=== PATIENT | male | born 1945 | race Caucasian/White ===

== ENCOUNTER 2016-06-11 05:46 | Emergency (ER) | payer OTHER, MEDICARE ==
--- NOTE | 2016-06-11 06:07 | CPEKG ---
Heart Rate: 46 RR Interval: 1304 P-R Interval: 312 QRSD Interval: 88 QT Interval: 484 QTC Interval: 424 P Summit: 55 QRS Summit: 66 T Wave Summit: 52 EKG Severity - ABNORMAL ECG - EKG Impression: SINUS BRADYCARDIA EKG Impression: FIRST DEGREE AV BLOCK Electronically Signed By: Nisa Desir 11-Jun-2016 09:14:59
[2016-06-11] MEDS ORDERED: ACETAMINOPHEN 500 MG TAB PO ONE (06:58)
[2016-06-11] MEDS ORDERED: DIAZEPAM 10 MG/2 ML SYR IVP ONE (06:59)
--- NOTE | 2016-06-11 07:38 | EDPHY ---
H & P Stated Complaint: l scapular pain Time Seen by Provider: 06/11/16 05:48 HPI/ROS: HPI The patient presents with a left-sided upper back pain which has been present for the last several hours which became severe, to the point that he called 911. EMS gave him fentanyl and Versed in route with significant improvement in his symptoms. The pain is just medial to his left scapular border and is a dull ache associated with muscle cramping it radiates outward throughout his back. It caused him to be doubled over in pain it was so severe. He had pain like this about 1 week ago after driving from the [facility] here. He attributed this to his positioning holding the steering wheel. He does not have any associated numbness or tingling. The pain does not radiate down his arm. He does not have any chest pain, shortness of breath, nausea, vomiting, diaphoresis or dizziness. Before week ago, he had no history of similar pain. He is very active, a swimmer, and has felt some clicking and pops in his shoulder occasionally. REVIEW OF SYSTEMS Constitutional: No fever, no chills. Eyes: No discharge. ENT: No sore throat. Cardiovascular: No chest pain, no palpitations. Respiratory: No cough, no shortness of breath. Gastrointestinal: No abdominal pain, no vomiting. Genitourinary: No hematuria. Musculoskeletal: No back pain. Skin: No rashes. Neurological: No headache. PMHx: Healthy, history of retinal detachment Soc Hx: Visiting [place] from the [facility] for the next 5 weeks PHYSICAL General Appearance: Alert, no distress Eyes: Pupils equal and round no pallor or injection ENT, Mouth: Mucous membranes moist Respiratory: There are no retractions, lungs are clear to auscultation Cardiovascular: Regular rate and rhythm Gastrointestinal: Abdomen is soft and non-tender, no masses, bowel sounds normal Neurological: A&O, moves all extremities Skin: Warm and dry, no rashes Musculoskeletal: Cervical and thoracic spine are nontender to palpation at the midline, the patient has tenderness at the medial mid border of the left clavicle which is moderate in severity Extremities: symmetrical, full range of motion Psychiatric: Patient is oriented X 3, there is no agitation Source: Patient Exam Limitations: No limitations - Personal History Current Tetanus/Diphtheria Vaccine: Yes Current Tetanus Diphtheria and Acellular Pertussis (TDAP): Yes - Medical/Surgical History Hx Asthma: No Hx Chronic Respiratory Disease: No Hx Diabetes: No Hx Cardiac Disease: No Hx Renal Disease: No Hx Cirrhosis: No Hx Alcoholism: No Hx HIV/AIDS: No Hx Splenectomy or Spleen Trauma: No 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 - Social History Smoking Status: Never smoked Constitutional: Initial Vital Signs Temperature (C) 36.3 C 06/11/16 05:54 Heart Rate 51 L 06/11/16 05:54 Respiratory Rate 18 06/11/16 05:54 Blood Pressure 132/87 H 06/11/16 05:54 O2 Sat (%) 95 06/11/16 05:54 O2 Delivery Mode Nasal Cannula Allergies/Adverse Reactions: erythromycin base [Erythromycin Base] Allergy (Mild, Verified 07/22/12 18:12) Home Medications: Medication Instructions Recorded Denies 01/18/10 Hydrocodone Bit/Acetaminophen 1 - 2 tab PO Q4-6PRN #15 tab 07/22/12 [Vicodin 5/500] Miscellaneous Medical Supply [NO 1 ea MISC AD 07/22/12 HOME MEDS] Diazepam 5 mg PO TID PRN #15 tab 06/11/16 Medical Decision Making - Diagnostics EKG Interpretation: EKG: Complete interpretation has been separately recorded in the [facility] archive. Summary impression: Sinus bradycardia Imaging: Left shoulder x-ray two view shows no fracture, no dislocation, interpreted by me, radiology interpretation is pending. Procedures: Trigger-point injection: 10 mL of lidocaine 1% were injected at the patient's point of maximal tenderness using a 27 gauge needle under semi sterile conditions, patient tolerated the procedure well with no immediate complications. Differential Diagnosis: This is a 70-year-old man who presents with acute onset of left-sided scapular pain. This has no associated features. On exam, he is well-appearing and comfortable, though did receive fentanyl and Versed in the field by EMS. He does have tenderness just medial to his left scapula. He has no midline tenderness. He has no chest pain, shortness of breath, nausea or vomiting or diaphoresis or dizziness. Differential diagnosis includes muscle spasm, cervical radiculopathy with referred pain, shoulder dislocation, shoulder arthritis, much less likely ACS given patient's history. In the emergency room, EKG was obtained which was unremarkable. Right shoulder x-rays were also normal for any acute injury. The patient wanted to proceed with a trigger point injection which was performed by me which provided him some relief from his pain. He was given a dose of Tylenol, he cannot take NSAIDs because of his retinal detachment, he was also given a benzodiazepine for muscle relaxation. He will be discharged with Tylenol and Valium. He is visiting from out of town, thus I have given him information for local doctor to follow up with if this pain continues. - Data Points Medications Given: Discontinued Medications Acetaminophen (Tylenol) 1,000 mg PO EDNOW ONE Stop: 06/11/16 06:59 Last Admin: 06/11/16 07:30 Dose: 1,000 mg Diazepam (Valium Injection) 2.5 mg IVP EDNOW ONE Stop: 06/11/16 07:00 Last Admin: 06/11/16 07:31 Dose: 2.5 mg Departure - Departure Disposition: Home, Routine, Self-Care Clinical Impression: Left-sided thoracic back pain Qualifiers: Chronicity: acute Qualified Code(s): M54.6 - Pain in thoracic spine Condition: Good Instructions: Diazepam (By mouth), Back Pain (ED) Additional Instructions: You should return to the emergency room if your worse in any way. Please use ice packs or heat on her back to help with pain. You can take Tylenol 1000 mg every 6 hours as needed for pain. I have given you information for follow-up if you continue to have pain. Referrals: Jhon Grady MD [Medical Doctor] - As per Instructions Don Barrera MD [Medical Doctor] - As per Instructions Prescriptions: Diazepam 5 mg PO TID PRN #15 tab PRN Reason: Spasms
[2016-06-11 07:56] VITALS: BP 138/79; PULSE 50; RESP 16; TEMP 98.2; O2SAT 96
== END 2016-06-11 08:28 | disposition home or self-care (01) ==
LOC: EDUNIT#
DX: M54.6 Pain in thoracic spine (principal)
CPT/HCPCS: 96374

== ENCOUNTER 2016-06-12 03:51 | Inpatient (IN) | payer OTHER, MEDICARE ==
--- NOTE | 2016-06-12 04:20 | EDPHY ---
H & P Time Seen by Provider: 06/12/16 04:01 HPI/ROS: Chief complaint: Left back pain HPI: 70-year-old male who is presenting with pain in his left upper back just medial to his left scapula. Patient was seen here last night for the same complaint. That point he had a left shoulder x-ray which was unremarkable. He was given trigger point injections, Tylenol and Valium with significant relief. Patient states that he recently drove into town from the [facility]. Does not have a history of similar pain in the past. He did have recent retinal detachment 3 weeks ago but feels that this is unrelated. He is otherwise normally very active, is a swimmer and has been at this no water in the past until he had his hip replacement. No fevers or chills. No cough or shortness of breath. Pain is not worsened with deep inspiration. It is a sharp grabbing pain which worsened this morning to the point that he was unable to move and had to call 911. Patient states that he went home taking Valium and ibuprofen which provided some relief but the pain continued to worsen to the course today. He got to the point where it would take to doses of his Valium and 1000 mg of acetaminophen to provide him with any relief. Did take this this morning but this time it did not give him any comfort. No abdominal pain. Pain is reproducible with movement of his left arm. ROS: 10 point Review of Systems is negative except as noted in the HPI. Past medical history: Retinal detachment Right hip replacement Hepatitis Physical exam: Gen: Awake, Alert, No Distress HEENT: Nose: no rhinorrhea Eyes: PERRLA, EOMI Mouth: Moist mucosa Neck: Supple, no JVD Chest: nontender, lungs clear to auscultation Heart: S1, S2 normal, no murmur Abd: Soft, non-tender, no guarding Back: no CVA tenderness, no midline tenderness he has tenderness just medial to the lower waning of the left scapula. Tenderness is along the trapezius musculature down palpation of the ribs. This reproduces the presenting complaint. T there are several small a areas of papules but no vesicles overlying the area. t is not tender to light touch. There is minimal muscle spasm noted. 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 - Social History Smoking Status: Never smoked Constitutional: Initial Vital Signs Temperature (C) 36.3 C 06/12/16 03:51 Heart Rate 55 L 06/12/16 03:51 Respiratory Rate 16 06/12/16 03:51 Blood Pressure 151/98 H 06/12/16 03:51 O2 Sat (%) 97 06/12/16 03:51 O2 Delivery Mode Room Air Allergies/Adverse Reactions: erythromycin base [Erythromycin Base] Allergy (Mild, Verified 06/12/16 04:43) Home Medications: Medication Instructions Recorded Hydrocodone Bit/Acetaminophen 1 - 2 tab PO Q4-6PRN #15 tab 07/22/12 [Vicodin 5/500] Miscellaneous Medical Supply [NO 1 ea MISC AD 07/22/12 HOME MEDS] Diazepam 5 mg PO TID PRN #15 tab 06/11/16 Valacyclovir HCl [Valtrex] 1,000 mg PO TID #21 tab 06/12/16 oxyCODONE/APAP 5/325 [Percocet 1 - 2 tab PO Q4H PRN #10 tab 06/12/16 5/325 (*)] Medical Decision Making ED Course/Re-evaluation: I reviewed patient's ECG and x-ray from last evening. These were unremarkable. Lungs are clear here. Will obtain a chest x-ray to rule out any other intrathoracic pathology although I think that this is unlikely. He is not having any relief with Valium and ibuprofen at home. Will given some morphine here. He cannot take nonsteroidals given his recent retinal detachment. Patient did have a trigger point injection but he states they gave him no relief. 0450 patient is still complaining of pain despite the morphine. He is declining a trigger-point injection. On re-evaluation he still having reproducible pain with palpable muscle spasm in his left back. This is reproducing his presenting complaint. Chest x-ray is negative. Will re-dose some morphine and apply a Lidoderm patch. On re-evaluation patient is noted to have some small areas of erythema and his upper back only on the left-hand side which is not on the right-hand side. These are very difficult to discern given the multitude of chronic skin lesions the patient has. There are overriding the area where he is complaining of pain. I suspect these are early shingles rash. Will cover him with fell psych live here in addition to narcotic pain medicines and have him follow up as an outpatient. Patient is still complaining of seizure beer pain in his left back. This is despite multiple doses of morphine and Percocet. I do believe this is probably herpetic secondary to an early zoster. I am unable to get his pain under control in this being his 2nd presentation in 2 days will require admission for further analgesia. I have paged the hospitalist, Dr. Sanchez. Case discussed with Dr. Sanchez. Will admit to her service for further care. - Data Points Medications Given: Discontinued Medications Morphine Sulfate (Morphine) 4 mg IVP EDNOW ONE Stop: 06/12/16 04:15 Last Admin: 06/12/16 04:25 Dose: 4 mg Morphine Sulfate (Morphine) 4 mg IVP EDNOW ONE Stop: 06/12/16 04:51 Last Admin: 06/12/16 05:05 Dose: 4 mg Oxycodone/Acetaminophen (Percocet 5/325) 2 tab PO EDNOW ONE Stop: 06/12/16 06:21 Last Admin: 06/12/16 06:21 Dose: 2 tab Valacyclovir HCl (Valtrex) 1,000 mg PO EDNOW ONE Stop: 06/12/16 05:29 Last Admin: 06/12/16 06:25 Dose: 1,000 mg Departure - Departure Disposition: [facility] Inpatient Acute Clinical Impression: Shingles Condition: Good Instructions: Shingles (ED) Additional Instructions: Take the full course of valacyclovir. You may take oxycodone as needed for pain. Follow up with her primary care physician in 2-3 days. Keep the area covered and if ever rash does develop be sure to keep it covered as well. Referrals: AMRIK COCHRAN [Other] - As per Instructions Prescriptions: oxyCODONE/APAP 5/325 [Percocet 5/325 (*)] 1 - 2 tab PO Q4H PRN #10 tab PRN Reason: Pain, Severe Valacyclovir HCl [Valtrex] 1,000 mg PO TID #21 tab
[2016-06-12] MEDS ORDERED: valACYclovir 500 MG TAB PO ONE (05:28)
[2016-06-12] MEDS: LIDOCAINE 5% 1 EA PATCH TD SCH ×2 (05:30→10:03)
[2016-06-12] MEDS ORDERED: OXYCODONE/APAP 5/325 TAB ONE ×2 (06:15)
[2016-06-12] MEDS ORDERED: OXYCODONE/APAP 5/325 TAB PO ONE (06:20)
[2016-06-12] MEDS ORDERED: HYDROmorphONE/DILAUDID 1 MG/ML SYR IVP ONE (07:08)
[2016-06-12] MEDS ORDERED: ACETAMINOPHEN 500 MG TAB PO PRN (07:37)
[2016-06-12] MEDS ORDERED: ONDANSETRON 4 MG/2 ML VIAL IVP PRN (07:37)
[2016-06-12] MEDS ORDERED: ONDANSETRON DISINTEGRATING 4 MG TAB PO PRN (07:37)
--- NOTE | 2016-06-12 07:45 | PDGENHP ---
History and Physical - Chief Complaint L upper back pain - History of Present Illness Patient is a 70/M with history of HCV, recurrent R retinal detachment who presents to the ED with complaint of acute L shoulder. Patient has been traveling/on vacation for the past several months, recently drove to [place] about 1 week ago. He states his back pain started suddenly on friday morning; he had woken up, was standing in the bathroom when he was hit with intense, throbbing/ sharp type pain in his L back, just lateral to his scapula. His stated it looked like his muscle was spasming. He came to the ED because his pain was so intense, was hemodynamically stable and was given valium and a nerve block with improvement in symptoms, so he was discharged home. He returns again today with recurrent symptoms, intense pain that does not cross his midline back, radiates around his armpit, but does not extend into his chest. He denies any recent fevers, chills, headache, dizziness, shortness of breath, cough, nausea, vomiting, abdominal pain. He does report exercising regularly, performs rowing routine without any cardiac or dizziness symptoms. On arrival to the ED, patient was mildly bradycardic but otherwise hemodynamically stable. There was concern for possible early zoster-like lesions. He was given valtrex, a lidoderm patch and opioid pain medicine, but continued to have symptoms. He was then admitted to the hospitalist service for further pain control and evaluation. History Information - Allergies/Home Medication List Allergies/Adverse Reactions: erythromycin base [Erythromycin Base] Allergy (Mild, Verified 06/12/16 04:43) Home Medications: Acetaminophen [Tylenol 325mg (*)] 325 mg PO DAILY PRN 06/12/16 [Last Taken Unknown] prednisoLONE ACET 1% [Pred Forte 1% (*)] 1 drops RTEYE QID 06/12/16 [Last Taken Unknown] I have personally reviewed and updated: family history, medical history, social history, surgical history - Past Medical History Additional medical history: HCV, resolved without treatment per patient. recurrent R retinal detachment - Surgical History Additional surgical history: R total hip replacement. cataract repair. R retinal surgery - Family History Positive for: non-pertinent - Social History Smoking Status: Never smoked Alcohol Use: Occasionally Drug Use: None Additional social history: Patient resides in [place] and [place] with his partner. 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 Review of Systems ROS: 10pt was reviewed & negative except for what was stated in HPI & below Physical Exam Temp Pulse Resp BP Pulse Ox 36.3 C 44 L 16 129/90 H 96 06/12/16 03:51 06/12/16 06:45 06/12/16 06:45 06/12/16 06:45 06/12/16 06:45 Constitutional: no apparent distress, appears nourished, not in pain Eyes: PERRL, anicteric sclera, EOMI Ears, Nose, Mouth, Throat: moist mucous membranes, hearing normal, ears appear normal, no oral mucosal ulcers Cardiovascular: regular rate and rhythym, no murmur, rub, or gallop, pulses symmetric bilaterally, No JVD, No edema Peripheral Pulses: 2+: dorsalis-pedis (R), dorsalis-pedis (L) Respiratory: no respiratory distress, no rales or rhonchi, clear to auscultation Gastrointestinal: normoactive bowel sounds, soft, non-tender abdomen, no palpable masses Genitourinary: no bladder fullness, no bladder tenderness Skin: other (? erythematous papules on L upper back, no obvious vesicles) Musculoskeletal: full muscle strength, no muscle tenderness, normal joint ROM, no joint effusions Neurologic: AAOx3, sensation intact bilaterally, CN II-XII Intact, No weakness, No numbness, No pronator drift, No facial droop Psychiatric: interacting appropriately, not anxious, not encephalopathic, thought process linear Lab Data & Imaging Review pending Visualized and Interpreted Chest x-ray results: Yes Chest X-Ray results: no infiltrate, normal Assessment & Plan Assessment: Patient is a 70/M with distant history of resolved HCV, recurrent R retinal detachment who presents to the ED for the second time in 2 days with acute L upper back pain. Etiology of pain is not clear, there are possible early shingles lesions present, he is being admitted for pain control. Plan: # L back pain Etiology of pain is not entirely obvious at this point, but suspect early zoster vs acute musculoskeletal spasm. Differential also includes atypical acs, aortic dissection, however, EKG without obvious ischemia and patient is neurovascularly intact in his distant L extremity. Will check basic labs, including LFTs, troponin. Will also initiate treatment for zoster with antivirals, lyrica and pain control as needed. - f/u labs - start lyrica, cont lidoderm patch - cont valtrex # dispo: admit to observation for pain control # gen: regular diet Full code
[2016-06-12 08:07] LABS: % IMMATURE GRANULYOCYTES 0.6 % (0.0-1.1); ABSOLUTE IMMATURE GRANULOCYTES 0.03 10^3/uL (0.00-0.10); ADD DIFF? NO; ADD MORPH? NO; ADD SCAN? NO; ATYPICAL LYMPHOCYTE FLAG 10 (0-99); FRAGMENT RBC FLAG 0 (0-99); HEMATOCRIT 44.5 % (40.0-51.0); HEMOGLOBIN 15.5 g/dL (13.7-17.5); LEFT SHIFT FLG 0 (0-99); LIPEMIA HEMOLYSIS FLAG 90 (0-99); MEAN CELL HEMOGLOBIN 30.5 pg (27.9-34.1); MEAN CELL HEMOGLOBIN CONCENTR. 34.8 g/dL (32.4-36.7); MEAN CELL VOLUME 87.4 fL (81.5-99.8); MEAN PLATELET VOLUME 9.8 fL (8.7-11.7); PLATELET CLUMPS FLAG 0 (0-99); PLATELET COUNT 134 10^3/uL (150-400); RED BLOOD CELL COUNT 5.09 10^6/uL (4.40-6.38); RED CELL DISTRIBUTION WIDTH 12.7 % (11.5-15.2)
[2016-06-12 08:26] LABS: ALANINE AMINOTRANSFERASE 43 IU/L (21-72); ALBUMIN 3.5 g/dL (3.5-5.0); ALKALINE PHOSPHATASE 43 IU/L (38-126); ANION GAP 9 mEq/L (8-16); ASPARTATE AMINOTRANSFERASE 37 IU/L (17-59); BILIRUBIN,TOTAL 2.6 mg/dL (0.1-1.4); BILIRUBIN-CONJUGATED 0.2 mg/dL (0.0-0.5); BILIRUBIN-UNCONJUGATED 2.4 mg/dL (0.0-1.1); CALCIUM 8.9 mg/dL (8.5-10.4); CARBON DIOXIDE 25 mEq/l (22-31); CHLORIDE 108 mEq/L (97-110); GLOMERULAR FILTRATION RATE > 60; GLUCOSE 80 mg/dL (70-100); POTASSIUM 3.9 mEq/L (3.5-5.2); SODIUM 142 mEq/L (134-144); TOTAL PROTEIN 6.2 g/dL (6.3-8.2)
[2016-06-12 08:37] LABS: TROPONIN I < 0.012 ng/mL (0-0.034)
[2016-06-12] MEDS: PREGABALIN 75 MG CAP PO SCH ×2 (10:02→21:35)
[2016-06-12] MEDS ORDERED: ACETAMINOPHEN 325 MG TAB PO PRN (15:29)
[2016-06-12] MEDS: oxyCODONE IR 5 MG TAB PO PRN ×2 (15:55→21:43)
[2016-06-12] MEDS: DIAZEPAM 5 MG TAB PO PRN (15:57)
[2016-06-12] MEDS: prednisoLONE ACET 1% 5 ML OPHT.BTL RTEYE SCH ×2 (16:00→21:36)
--- NOTE | 2016-06-12 17:52 | HOSPPROG ---
Hospitalist Progress Note Assessment/Plan: # acute back pain - receiving empiric tx for MsK back pain as well as possible Zoster - cont prn pain and benzos - cont antivirals and lyrica Objective: Vital Signs Temp Pulse Resp BP Pulse Ox 36.3 C 57 L 16 119/81 H 93 06/12/16 09:31 06/12/16 15:53 06/12/16 15:53 06/12/16 15:53 06/12/16 15:53 Laboratory Results 06/12/16 07:45 06/12/16 07:45 ICD10 Worksheet Patient Problems: Problems Problem Status Onset Shingles Acute
[2016-06-12] MEDS: valACYclovir 500 MG TAB PO SCH ×2 (21:35→22:12)
[2016-06-12] MEDS: PATCH REMOVAL 1 EA PATCH TD SCH (21:36)
[2016-06-13] MEDS: oxyCODONE IR 5 MG TAB PO PRN (06:12)
[2016-06-13] MEDS: prednisoLONE ACET 1% 5 ML OPHT.BTL RTEYE SCH ×4 (06:12→21:27)
[2016-06-13] MEDS: DIAZEPAM 5 MG TAB PO PRN (06:13)
[2016-06-13] MEDS: valACYclovir 500 MG TAB PO SCH (10:03)
[2016-06-13] MEDS: PREGABALIN 75 MG CAP PO SCH (10:03)
[2016-06-13] MEDS ORDERED: NAPROXEN SODIUM 220 MG TAB PO SCH (10:30)
[2016-06-13] MEDS ORDERED: KETOROLAC 30 MG/1 ML SDV IVP ONE (13:00)
[2016-06-13] MEDS: HYDROmorphONE/DILAUDID 2 MG TAB PO PRN (13:20)
--- NOTE | 2016-06-13 13:29 | GCON ---
[f rep st] CONSULTATION NEUROSURGERY CONSULTATION CHIEF COMPLAINT: Left scapular pain. HISTORY OF PRESENT ILLNESS: This is a 70-year-old male, who states that he was hiking on Friday and felt fine. Friday morning, he awoke with a severe pain in his left scapular region that extended to his shoulder and down into his armpit. Patient states that he went to the emergency room because he was unable to get his pain under control and was given Tylenol, as well as some other IV pain me dicines and sent home. The next day, he woke up and was still in intractable pain, and his sta maxime that he heard him get up and go to the bathroom and then fell down due to pain. The patient den ies any numbness, tingling, or weakness in his arms or legs, and states that he fell simply from raysa n and not due to weakness. Patient denies any loss of bowel or bladder control. He has been admitt ed to the hospital for pain control since Friday and states that he has been unable to get his pain under control with oxycodone, as well as Valium and Tylenol. He states he is unable to take any an tiinflammatory medications at this time because he had eye surgery approximately 3 weeks ago and was told that he was unable to take any antiinflammatory medications. 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 Patient on my consultation today is comp laining of a pain level of 3/10. It is worse when he moves his arm or shoulder. Pain is made humera r by putting his arm up in the air. Patient denies any other complaints at this time, including los s of bowel or bladder control, saddle anesthesia, weakness in his legs, or any numbness or tingling in his arms or legs. REVIEW OF SYSTEMS: All pertinent positive and negative review of systems are as stated in the HPI. PAST MEDICAL HISTORY: Patient has a history of HCV that resolved without any treatment per patient, and has a history of recurrent right retinal detachment. PAST SURGICAL HISTORY: Consists of a right total hip replacement, cataract repair, and recent retin al surgery 3 weeks ago. FAMILY HISTORY: Patient denies any family history of any neurologic history, such as tumors, aneury sm, or stroke. MEDICATIONS ON ADMISSION: Include Tylenol and prednisolone eyedrops. SOCIAL HISTORY: Patient is with his is at the bedside. He denies any history of tobac co use. He denies any other illicit drug use, and he drinks alcohol occasionally. 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 OBJECTIVE: VITAL SIGNS: pressure 144/89, heart rate 61, respiratory rate 16, O2 sat 98% on room air , temperature is 36.3 degrees Celsius. CONSTITUTIONAL: Patient is a well-developed, well-nourished male, in no acute distress. He is alert and oriented x3. HEENT: Head is normocephalic, atraumati c. Pupils are equal and react to light and accommodation. Extraocular muscles are intact. RESPIRA TORY: Patient has normal work of breathing. ABDOMEN: Patient has no guarding. NEURO: Cranial ne rves 2-12 are grossly intact. Tongue protrusion is midline. Accessory muscles are 5/5 and equal in strength. Face is symmetrical without any droop, and sensation is intact to light touch of the fac e. Motor: Bilateral upper extremities are 5/5 and equal in strength in all muscle groups including biceps, triceps, wrist extensors, flexors, interossei, and baby sitter, and bilateral lower extremities ar e 5/5 and equal in strength in hamstrings, quadriceps, dorsiflexion, plantarflexion, and EHL, and se nsation is intact over the normal dermatomal distribution of the body. Other reflexes are negative for Babinski and clonus and Rosalba. EXTREMITIES: No cyanosis or edema noted. MUSCULOSKELETAL: Patient is tender to palpation over the left scapular and rhomboids on the inferior side of the scap azael, and between the scapula and the armpit. LABORATORY DATA: White blood cell count 5.03, red blood cell count 5.09, hemoglobin 15.5, hematocri t 44.5, platelets are 134. Sodium was 142, potassium 3.9, chloride 108, BUN 24, creatinine 1, gluco se is 80. Calcium is 8.9. IMAGING: A thoracic spine without contrast was obtained and shows a possible intradural extramedull muriel nodule at the T1 level essentially towards the left side. Further evaluation with targeted T1 w eighted MRI postcontrast imaging, as well as a thin section axial T2 sequence at the T1 level is sug gested for further characterization. ASSESSMENT AND PLAN: This is a 70-year-old male with a 2-day history of acute left scapular pain th at radiates into his shoulder. At this time, the patient remains neurologically intact without any signs of myelopathy or weakness. On exam, he does seem to have tenderness to palpation over the lef t scapula, which is mostly consistent with musculoskeletal pain. The possible lesion seen on the th oracic MRI is not well visualized, and we will obtain a contrasted image of his cervical spine exten ding down to the level of T4 to better evaluate this lesion. At this time, I think the best option for medications for this patient would be antiinflammatories, and the patient will call his eye doct or to get permission to take this as he had recent surgery and thought that he was unable to take th crescencio medications. We will also add a different muscle relaxer to try to help with this pain. Patient was seen by myself and Dr. Garcia at 12:30 p.m. He should continue to work with Physical The rapy, Occupational Therapy, and we will further review the images of the cervical spine once these a re obtained. If you any questions or concerns, please contact Neurosurgery. /[id number]/MODL
[2016-06-13] MEDS ORDERED: GADOBUTROL 10 ML VIAL IVP ONE (13:35)
--- NOTE | 2016-06-13 14:41 | HOSPPROG ---
Hospitalist Progress Note Assessment/Plan: Assessment: 70-year-old male presents with acute shoulder/back pain Plan: 1. Shoulder/back pain. Acute, new problem this provider, further workup indicated. Potential etiologies include neuropathic pain radiating from a small but identified T1 lesion on MRI versus muscular injury in the subscapularis versus cervical spine injury. -performing MRI of the cervical spine down to the T4 level per recommendations from Neurosurgery to determine whether there is a structural identifiable cause of his symptoms -performing MRI of the left shoulder to understand whether there is a tendon or muscular injury over that left subscapularis versus posterior rotator cuff -the pain continues to be severely debilitating to the patient and he is unable to stand upright or reach a comfortable position -the current pain medications are cognitively impairing and not producing a particular benefit -adjusted to scheduled IV Toradol with as needed Flexeril, as needed Dilaudid Tylenol -patient is in too much pain to engage in occupational therapy, will involve occupational therapy once pain is better controlled 2. History of right eye hemorrhage. 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 Regular Prophylaxis. Moderate risk patient, SCDs Code. Full Disposition. Anticipated discharge is uncertain this time, upgraded to inpatient admission status as patient is anticipated length stay is greater than 48 hours for reasonable medical necessity including severe shoulder and back pain rendering him unable to complete ADLs and requiring pain medication adjustments at this time as well as further diagnostic workup given his potential for a serious spinal process. Subjective: Patient is constantly uncomfortable and moving around from the discomfort Objective: Vital Signs Temp Pulse Resp BP Pulse Ox 36.3 C 51 L 16 144/89 H 98 06/13/16 08:00 06/13/16 08:00 06/13/16 08:00 06/13/16 08:00 06/13/16 08:00 Laboratory Results 06/12/16 07:45 06/12/16 07:45 - Time Spent With Patient Time Spent with Patient: greater than 35 minutes Time Spent with Patient: Greater than 35 minutes spent on this patients care, greater than 50% of time spent counseling, educating, and coordinating care regarding the above mentioned plan. - Physical Exam Constitutional: appears nourished, uncomfortable, No not in pain, No chronically ill appearing Cardiovascular: regular rate and rhythym, no murmur, rub, or gallop Respiratory: no respiratory distress, no rales or rhonchi, clear to auscultation Skin: other (No evidence of vesicular lesions or erythema) Musculoskeletal: other (Tenderness to palpation over the left upper thoracic spine and paravertebral muscles as well as tenderness to palpation over the left scapula, no pain with medial flexion of the left shoulder and upper extremity, pain with full extension of the left upper extremity, no tenderness to palpation over the left sub acromioclavicular joint) Neurologic: AAOx3, sensation intact bilaterally, No weakness (Motor strength 5/ 5 left upper extremity) Psychiatric: anxious, agitated, other (Cognitively cloudy) ICD10 Worksheet Patient Problems: Problems Problem Status Onset Shingles Acute
[2016-06-13] MEDS: KETOROLAC 15 MG/1 ML SDV IVP SCH (18:41)
[2016-06-13] MEDS ORDERED: GABAPENTIN 300 MG CAP PO SCH (21:00)
[2016-06-13] MEDS: PATCH REMOVAL 1 EA PATCH TD SCH (21:26)
[2016-06-14] MEDS: KETOROLAC 15 MG/1 ML SDV IVP SCH ×2 (00:08→05:52)
[2016-06-14] MEDS: prednisoLONE ACET 1% 5 ML OPHT.BTL RTEYE SCH ×2 (05:53→13:11)
[2016-06-14 06:11] LABS: HEMATOCRIT 45.4 % (40.0-51.0); HEMOGLOBIN 15.5 g/dL (13.7-17.5); MEAN CELL HEMOGLOBIN 29.5 pg (27.9-34.1); MEAN CELL HEMOGLOBIN CONCENTR. 34.1 g/dL (32.4-36.7); MEAN CELL VOLUME 86.3 fL (81.5-99.8); RED BLOOD CELL COUNT 5.26 10^6/uL (4.40-6.38); RED CELL DISTRIBUTION WIDTH 12.8 % (11.5-15.2)
[2016-06-14 06:24] LABS: ANION GAP 8 mEq/L (8-16); CALCIUM 8.9 mg/dL (8.5-10.4); CARBON DIOXIDE 23 mEq/l (22-31); CHLORIDE 107 mEq/L (97-110); CREATININE 1.2 mg/dL (0.7-1.3); GLOMERULAR FILTRATION RATE 60; GLUCOSE 92 mg/dL (70-100); POTASSIUM 4.7 mEq/L (3.5-5.2); SODIUM 138 mEq/L (134-144)
[2016-06-14] MEDS: HYDROmorphONE/DILAUDID 2 MG TAB PO PRN ×2 (08:02→13:10)
[2016-06-14] MEDS: LIDOCAINE 5% 1 EA PATCH TD SCH (08:03)
[2016-06-14] MEDS: CYCLOBENZAPRINE 10 MG TAB PO PRN ×2 (08:03→13:10)
--- NOTE | 2016-06-14 08:40 | NEUSURGPN ---
Assessment/Plan: A: 70 yo M with left shoulder blade area pain P: -MRI C spine done, shows left sided disc T1-2 -Report of shoulder MRI shows degeneration -Neuro intact on exam but pain limited -D/w Dr Garcia, we feel ortho eval would be beneficial -Could consider CHRIS at T1-2 but pain seems very localized/pinpoint to shoulder blade area w/o radiation and doesn't fully match up with level of disc -OK to DC if pain well controlled and could follow up as outpatient -Call NS with any questions Subjective: Pt resting in bed, more comfortable when laying flat Objective: AAOx3 NAD VSS MAEx4 Motor 5/5 BUE for delt/tri/bi/wrist flex/ex, intrinsics, thenar, handgrips +LT Urinary Catheter in Place: No - Physician Discussed Patient with Dr.: Garcia Neurosurgery Physical Exam - Vitals, I&O, Labs Vital Signs Temp Pulse Resp BP Pulse Ox 36.4 C 59 L 22 H 152/100 H 95 06/14/16 08:00 06/14/16 08:00 06/14/16 08:00 06/14/16 08:00 06/14/16 08:00 Laboratory Results 06/14/16 05:56 06/14/16 05:56 ICD10 Worksheet Patient Problems: Problems Problem Status Onset Shingles Acute
[2016-06-14] MEDS ORDERED: IOPAMIDOL (ISOVUE-M 300) 15 ML VIAL IV ONE (15:58)
[2016-06-14] MEDS ORDERED: TRIAMCINOLONE ACETONIDE 200 MG/5 ML MDV IM ONE (15:58)
[2016-06-14 16:17] VITALS: BP 128/79; PULSE 58; RESP 14; TEMP 97.8; O2SAT 91
--- NOTE | 2016-06-14 16:30 | PDDCSUM ---
Discharge Summary Discharge Summary: DISCHARGE SUMMARY FOLLOW-UP ITEMS: Reassess back pain and shoulder pain status post physical therapy DATE OF ADMISSION: 06/12/16 DATE OF DISCHARGE: 06/14/2016 DISCHARGE DIAGNOSES: 1. Acute subscapularis strain 2. Acute T1/T2 disc herniation on left 3. History of right eye hemorrhage CONSULTATIONS: Neurosurgery PROCEDURES / IMAGING: Steroid injection of T1/T2 spine CHIEF COMPLAINT: Acute back pain and shoulder pain SUBJECTIVE: Patient's pain is more manageable today on the medications listed below PHYSICAL EXAM ON DISCHARGE: Systolic blood pressure is 120 to 150, heart rate in the 50s to 60s, patient is able to stand and does have improved range of motion of his left shoulder, better on medial flexion then on posterior extension LABS ON DISCHARGE: Creatinine 1.2 HOSPITAL COURSE BY PROBLEM: 1. Acute subscapularis strain. Most likely secondary to cross-country driving, evidenced by tenderness to palpation over the left scapula as well as painful posterior extension of the left shoulder. An MRI confirmed strain as well as some mild to moderate tendinopathy and rotator cuff injury. I believe that the subscapular strain is the most likely cause of his left shoulder pain and should be treated with topical Lidoderm patch as well as scheduled low-dose naproxen the next week. Should begin engaging it with physical therapy. No orthopedic surgical consultation is indicated at this time. 2. T1/T2 disc herniation on left, acute. Patient experienced very painful disc herniation resulting in his severe back pain. He required extended comma inpatient admission secondary to inability to effectively control his pain and the need to continuously reassess as well as adjust pain medications. We were able to accomplish substantive pain relief with oral Dilaudid as needed, oral Flexeril as needed, scheduled naproxen, initiating dose of gabapentin. The patient also had a neurosurgical consultation and they recommended steroid injection. This was performed by Interventional Radiology. He will follow up with Neurosurgery and engage in physical therapy. 3. History of right eye hemorrhage. Patient has a history of retinal hemorrhage and he has contacted his outpatient web communications specialist to verify that it is safe to temporarily take nonsteroidal anti-inflammatory medications without precipitously increasing his risk of bleeding into the affected area. His outpatient web communications specialist has advised him to use the medications we have prescribed. DISCHARGE MEDICATIONS: Please see official discharge medication reconciliation sheet in chart , naproxen 220 twice daily scheduled for 1 week, gabapentin 300 mg at bedtime scheduled, Lidoderm patch daily for 2 weeks, as needed Dilaudid oral tablets, as -needed Flexeril oral tablets. DISCHARGE INSTRUCTIONS: The patient should contact physical therapist and schedule outpatient eval and treat. He should also follow up with Dr. Garcia's office next week. TIME SPENT: Greater than 30 minutes were spent on direct patient care, as well as discharge planning and preparation.
[2016-06-14] MEDS ORDERED: NAPROXEN SODIUM 220 MG TAB PO SCH (21:00)
== END 2016-06-14 17:20 | disposition home or self-care (01) | DRG 563 ==
LOC: EDUNIT# → F1N 08:23 → OBSVTOIN 06-13 14:37
PROVIDERS: ADMIT Internal Medicine; ATTEND Internal Medicine
PROC: 3E0S3BZ Introduction of Anesthetic Agent into Epidural Space, Percutaneous Approach (ICD-10-PCS; principal; 2016-06-14)
PROC: 3E0S33Z Introduction of Anti-inflammatory into Epidural Space, Percutaneous Approach (ICD-10-PCS; principal; 2016-06-14)
DX: S43.82XA Sprain of other specified parts of left shoulder girdle, initial encounter (principal); X50.1XXA Overexertion from prolonged static or awkward postures, initial encounter; Y92.411 Interstate highway as the place of occurrence of the external cause; Y93.89 Activity, other specified; Y99.8 Other external cause status; M51.14 Intervertebral disc disorders with radiculopathy, thoracic region; Z96.641 Presence of right artificial hip joint
CPT/HCPCS: 96374; A9585; G0378; J1170; J1885; J3301; Q9967